=== PATIENT | male | born 1980 | race Caucasian/White ===

== ENCOUNTER 2021-01-23 09:52 | Emergency (ER) | payer OTHER, SELFPAY ==
[2021-01-23 10:32] VITALS: BP 141/99; PULSE 97; RESP 18; O2SAT 97; BMI 28.4
--- NOTE | 2021-01-23 10:40 | XRR_ITS ---
PROCEDURE INFORMATION: Exam: XR Chest Exam date and time: 01/23/2021 10:40 AM Age: 40 years old Clinical indication: Shortness of breath; Additional info: SOB TECHNIQUE: Imaging protocol: XR of the chest. Views: 1 view. COMPARISON: No relevant prior studies available. FINDINGS: Lungs: Cavitary lesion within the right upper lobe of approximately 3 cm. Lungs are well aerated without a focal area of consolidation. Pleural spaces: Unremarkable. No pleural effusion. No pneumothorax. Heart/Mediastinum: Unremarkable. No cardiomegaly. Bones/joints: Unremarkable. XR/XR chest 1V portable [id number] IMPRESSION: 1. Cavitary lesion within the right upper lobe of approximately 3 cm. 2. Lungs are well aerated without a focal area of consolidation.
--- NOTE | 2021-01-23 10:42 | W.ED.GENADLT ---
HPI - General Adult General: Chief complaint: COVID symptoms Stated complaint: COVID SX:3 WKS ELEV TEMP,COUGH,LAST VACC 3 WKS Time Seen by Provider: 01/23/21 10:37 Source: patient Mode of arrival: ambulatory Limitations: no limitations History of Present Illness: HPI narrative: 40-year-old male states that ever since he had his second Covid vaccine 2 weeks ago she had chills body aches and cough. States he just had malaise and fatigue as well. Denies any shortness of breath denies any nausea or vomiting or diarrhea. Denies any worsening or improving factors. Patient is in no respiratory distress here. Associated symptoms: Deny chest pain, headache(s), nausea, rash or vomiting Review of Systems Const: Reports: fever(s) and chills Eyes: Denies: blurry vision or eye discomfort ENMT: Denies: throat pain or dental pain Card: Denies: chest pain Resp: Reports: non-productive cough GI: Denies: abdominal pain, nausea, vomiting or diarrhea : Denies: dysuria Musc: Denies: neck pain or back pain Skin/Breast: Denies: rash Neuro: Denies: headache(s) Psych: Denies: depression Abel/Lymph: Denies: easy bruising All/Imm: Denies: urticaria Physical Exam Const: COMMON NORMALS: no acute distress, patient oriented x3 and healthy appearing HENMT: COMMON NORMALS: normocephalic and atraumatic HEAD & SCALP: normocephalic and atraumatic Eye: COMMON NORMALS: Equal, round and reactive pupils present and EOMs intact bilaterally PUPIL: Yes Equal, round and reactive pupils present Neck/C-Spine: COMMON NORMALS: full ROM and supple Chest: COMMONS NORMALS: normal inspection of the chest and normal palpation of entire chest wall Resp: COMMON NORMALS: normal respiratory effort, No retractions, No use of accessory muscles and clear to auscultation bilaterally AUSCULTATION: clear to auscultation bilaterally Cardio: COMMON NORMALS: regular rate, regular rhythm and No murmurs present (Cardio) RATE: regular rate RHYTHM: regular rhythm GI: COMMON NORMALS: Normal to inspection, nondistended, normoactive bowel sounds present, Soft to palpation, non-tender and no masses PALPATION: Yes Soft to palpation Extremity: COMMON NORMALS: normal to inspection and full ROM Neuro: COMMON NORMALS: patient oriented x3, moves all extremities and no focal motor deficits Psych: COMMON NORMALS: mental status grossly normal, Normal thought process present and cooperative THOUGHT PROCESS: Normal thought process present Skin: COMMON NORMALS: no rashes or lesions noted and no wounds GENERAL SKIN EXAM: no rashes or lesions noted Course Vital Signs: Vital signs: Vital Signs Pulse Rate 87 01/23/21 12:22 Respiratory Rate 16 01/23/21 12:22 Blood Pressure 123/78 01/23/21 12:22 Pulse Oximetry 97 01/23/21 12:22 MDM - General Adult MDM Narrative: Medical decision making narrative: Patient presents here with a viral-like illness over the last week to 2 weeks. He is afebrile here and nontoxic-appearing. His white count here is normal as well. CT scan showed a possible lung abscess versus other lesion with likely cavitary mass. Is 3.7 cm. I did speak to raw stock machine loader Dr. Lowery will start patient on oral antibiotics and antifungals get sputum cultures. He is to follow-up with Dr. Calloway next week. I spoke to patient as well and patient like to go home as he states that he feels well. I informed if he has a fever any shortness of breath he is return immediately. He understands and agrees to the plan. Lab Data: Labs: Lab Results 01/23/21 01/23/21 01/23/21 10:55 10:55 10:55 WBC 9.2 10^3/uL 10^3/ uL (4.0-10.0) RBC 5.08 10^6/uL 10^6 /uL (4.1-5.3) Hgb 16.1 g/dL g/dL (11.7-16.6) Hct 46.6 % % (42.0-52.0) MCV 91.7 fl fl (80-94) MCH 31.7 pg pg (28.0-34.0) MCHC 34.5 g/dL g/dL (30.0-36.0) RDW 13.0 % % (12.1-15.1) Plt Count 316 10^3/cmm 10^3 /cmm (130-400) MPV 9.6 fL fL (7.4-10.4) Neut % (Auto) 80.7 % % Lymph % (Auto) 9.8 % % [place] % (Auto) 7.2 % % Eos % (Auto) 1.6 % % Baso % (Auto) 0.4 % % Neut # (Auto) 7.41 10^3/uL 10^3 /uL (1.8-7.7) Lymph # (Auto) 0.9 10^3/uL 10^3/ uL (0.8-4.8) [place] # (Auto) 0.7 10^3/uL 10^3/ uL (0.2-0.9) Eos # (Auto) 0.2 10^3/uL 10^3/ uL (0.0-0.8) Baso # (Auto) 0.0 10^3/uL 10^3/ uL (0.0-0.1) Nucleated RBC % (a uto) 0 % % Nucleated RBCs # 0.0 /100WBC /100W BC Sodium Cancelled Potassium Cancelled Chloride Cancelled Carbon Dioxide Cancelled Anion Gap Cancelled BUN Cancelled Creatinine Cancelled GFR Calculation Cancelled Glucose Cancelled Calculated Osmolal ity Cancelled Calcium Cancelled Total Bilirubin Cancelled AST Cancelled ALT Cancelled Alkaline Phosphata se Cancelled Total Protein Cancelled Albumin Cancelled Globulin Cancelled SARS-CoV-2 Ag (Rap id) Negative (Negative) 01/23/21 11:23 WBC RBC Hgb Hct MCV MCH MCHC RDW Plt Count MPV Neut % (Auto) Lymph % (Auto) [place] % (Auto) Eos % (Auto) Baso % (Auto) Neut # (Auto) Lymph # (Auto) [place] # (Auto) Eos # (Auto) Baso # (Auto) Nucleated RBC % (a uto) Nucleated RBCs # Sodium 135 mmol/L L mmol /L (136-145) Potassium 5.1 mmol/L mmol/L (3.5-5.1) Chloride 101 mmol/L mmol/L (98-107) Carbon Dioxide 26 mmol/L mmol/L (22-29) Anion Gap 13.1 (5-19) BUN 11 mg/dL mg/dL (6-20) Creatinine 0.8 mg/dL mg/dL (0.7-1.2) GFR Calculation 107.6 mL/min mL/m in (90-130) Glucose 95 mg/dL mg/dL (65-115) Calculated Osmolal ity 279 mOsm/kg L mOs m/kg (285-295) Calcium 8.9 mg/dL mg/dL (8.5-10.5) Total Bilirubin 0.4 mg/dL mg/dL (0.15-1.2) AST 21 U/L U/L (0-40) ALT 30 U/L U/L (0-41) Alkaline Phosphata se 71 IU/L IU/L (40-130) Total Protein 7.1 g/dL g/dL (6.6-8.7) Albumin 3.6 g/dL g/dL (3.5-5.2) Globulin 3.5 g/dL g/dL (1.3-4.6) SARS-CoV-2 Ag (Rap id) Imaging Data^: CXR: Radiologist's impression: [place] [address] XRay Report Signed Patient: Adeel Hernandez Unit #: [id number] : 1980 Age/Sex: 40 / M ADM Date: 01/23/21 Loc: ER Room/Bed: Attending Dr: Ordering Provider/Ordering MD: Jessie Betancur MD Date of Service: 01/23/21 Procedure(s): XR chest 1V portable [id number] Accession Number(s): [id number] Report Number: [id number] PROCEDURE INFORMATION: Exam: XR Chest Exam date and time: 01/23/2021 10:40 AM Age: 40 years old Clinical indication: Shortness of breath; Additional info: SOB TECHNIQUE: Imaging protocol: XR of the chest. Views: 1 view. COMPARISON: No relevant prior studies available. FINDINGS: Lungs: Cavitary lesion within the right upper lobe of approximately 3 cm. Lungs are well aerated without a focal area of consolidation. Pleural spaces: Unremarkable. No pleural effusion. No pneumothorax. Heart/Mediastinum: Unremarkable. No cardiomegaly. Bones/joints: Unremarkable. XR/XR chest 1V portable [id number] IMPRESSION: 1. Cavitary lesion within the right upper lobe of approximately 3 cm. 2. Lungs are well aerated without a focal area of consolidation. Dictated By: Jayme Fong MD Signed By: Jayme Fong MD Signed Date/Time: 01/23/21 1140 DD/ 1139 CT Chest: Radiologist's impression: [address] [place] [address] CT Scan Report Signed Patient: Adeel Hernandez Unit #: [id number] : 1980 Age/Sex: 40 / M ADM Date: 01/23/21 Loc: ER Room/Bed: Attending Dr: Ordering Provider/Ordering MD: Jessie Betancur MD Date of Service: 01/23/21 Procedure(s): CT chest w con* [id number] Accession Number(s): [id number] Report Number: [id number] PROCEDURE INFORMATION: Exam: CT Chest With Contrast; Diagnostic Exam date and time: 01/23/2021 11:40 AM Age: 40 years old Clinical indication: Fever and shortness of breath; Additional info: Lung mass TECHNIQUE: Imaging protocol: Diagnostic computed tomography of the chest with contrast. Radiation optimization: All CT scans at this facility use at least one of these dose optimization techniques: automated exposure control; mA and/or kV adjustment per patient size (includes targeted exams where dose is matched to clinical indication); or iterative reconstruction. Contrast material: OMNI 300; Contrast volume: 95 ml; Contrast route: INTRAVENOUS (IV); COMPARISON: CR (CHEST, ) 01/23/2021 10:55 AM RADIATION DOSE METRICS: Total DLP (mGy-cm): 566.51 FINDINGS: Lungs: There is a 3.7 cm cavitary mass in the right upper lobe which was recently identified on a chest radiograph. It has poorly defined spiculated margins. There is an air-fluid level within the cavity. No other pulmonary mass or infiltrates are seen. Pleural spaces: Unremarkable. No pneumothorax. No pleural effusion. Heart: Unremarkable. No cardiomegaly. No pericardial effusion. Aorta: Unremarkable. No aortic aneurysm. Lymph nodes: There are mildly enlarged mediastinal lymph nodes which could be reactive in nature. Liver: There is a 6 mm hypodensity in the right lobe of the liver that is probably benign liver cyst. Bones/joints: Unremarkable. No acute fracture. Soft tissues: Unremarkable. CT/CT chest w con* [id number] IMPRESSION: 1. There is a 3.7 cm thick-walled cavitary mass with an air-fluid level in the right upper lobe. This could represent a infectious process with lung abscess. The possibility of necrotic neoplasia is not excluded. 2. There is mild mediastinal adenopathy. Radiation Dose CTDIVOL = (mGy): DLP = 566.51 (mGy-cm) Dictated By: He Barahona Signed By: He Barahona Signed Date/Time: 01/23/21 1301 DD/ 1300 Discharge Plan Discharge Patient Disposition: Home Clinical Impression: Cavitating mass in right upper lung lobe Condition: Stable Prescriptions: New fluconazole 200 mg tablet 200 mg PO DAILY Qty: 10 RF: 0 Discharge Orders: Discharge ED (Routine); Ordered 01/23/21 Ordered By: Jessie Betancur Referrals: DatarJose MD [Physician] - 1-3 days Mamadou Gutierres [Primary Care Provider] - Discharge Diet: Advance as tolerated Discharge Activity: Resume usual activity Patient Instructions: Lung Abscess (GEN) Coding Level of Care Code ED Manager Staffing for Chg Fwd Exam Comprehensive
[2021-01-23 11:03] VITALS: O2SAT 97
[2021-01-23 11:05] VITALS: BP 132/91; PULSE 88; RESP 16; O2SAT 96
[2021-01-23 11:10] LABS: Basophils % 0.4 %; Eosinophils # 0.2 10^3/uL (0.0-0.8); Eosinophils % 1.6 %; Hematocrit 46.6 % (42.0-52.0); Hemoglobin 16.1 g/dL (11.7-16.6); Lymphocytes # 0.9 10^3/uL (0.8-4.8); Lymphocytes % 9.8 %; Mean Corpuscular HGB Conc 34.5 g/dL (30.0-36.0); Mean Corpuscular Hemoglobin 31.7 pg (28.0-34.0); Mean Corpuscular Volume 91.7 fl (80-94); Mean Platelet Volume 9.6 fL (7.4-10.4); Monocytes # 0.7 10^3/uL (0.2-0.9); Monocytes % 7.2 %; Neutrophils # 7.41 10^3/uL (1.8-7.7); Neutrophils % 80.7 %; Nucleated Red Blood Cells % 0 %; Platelet Count 316 10^3/cmm (130-400); Red Blood Count 5.08 10^6/uL (4.1-5.3); White Blood Count 9.2 10^3/uL (4.0-10.0)
[2021-01-23] MEDS: sodium chloride 0.9% 1,000 ML 999 ML IV (11:12)
[2021-01-23] MEDS: dexamethasone 10 mg/mL INJ IVP (11:12)
--- NOTE | 2021-01-23 11:40 | CTR_ITS ---
PROCEDURE INFORMATION: Exam: CT Chest With Contrast; Diagnostic Exam date and time: 01/23/2021 11:40 AM Age: 40 years old Clinical indication: Fever and shortness of breath; Additional info: Lung mass TECHNIQUE: Imaging protocol: Diagnostic computed tomography of the chest with contrast. Radiation optimization: All CT scans at this facility use at least one of these dose optimization techniques: automated exposure control; mA and/or kV adjustment per patient size (includes targeted exams where dose is matched to clinical indication); or iterative reconstruction. Contrast material: OMNI 300; Contrast volume: 95 ml; Contrast route: INTRAVENOUS (IV); COMPARISON: CR (CHEST, ) 01/23/2021 10:55 AM RADIATION DOSE METRICS: Total DLP (mGy-cm): 566.51 FINDINGS: Lungs: There is a 3.7 cm cavitary mass in the right upper lobe which was recently identified on a chest radiograph. It has poorly defined spiculated margins. There is an air-fluid level within the cavity. No other pulmonary mass or infiltrates are seen. Pleural spaces: Unremarkable. No pneumothorax. No pleural effusion. Heart: Unremarkable. No cardiomegaly. No pericardial effusion. Aorta: Unremarkable. No aortic aneurysm. Lymph nodes: There are mildly enlarged mediastinal lymph nodes which could be reactive in nature. Liver: There is a 6 mm hypodensity in the right lobe of the liver that is probably benign liver cyst. Bones/joints: Unremarkable. No acute fracture. Soft tissues: Unremarkable. CT/CT chest w con* [id number] IMPRESSION: 1. There is a 3.7 cm thick-walled cavitary mass with an air-fluid level in the right upper lobe. This could represent a infectious process with lung abscess. The possibility of necrotic neoplasia is not excluded. 2. There is mild mediastinal adenopathy. Radiation Dose CTDIVOL = (mGy): DLP = 566.51 (mGy-cm)
[2021-01-23 11:46] LABS: Alanine Aminotransferase 30 U/L (0-41); Albumin Level 3.6 g/dL (3.5-5.2); Alkaline Phosphatase 71 IU/L (40-130); Anion Gap 13.1 (5-19); Aspartate Amino Transferase 21 U/L (0-40); Blood Urea Nitrogen 11 mg/dL (6-20); Calcium 8.9 mg/dL (8.5-10.5); Carbon Dioxide 26 mmol/L (22-29); Chloride 101 mmol/L (98-107); Globulin 3.5 g/dL (1.3-4.6); Glomerular Filtration Rate 107.6 mL/min (90-130); Glucose 95 mg/dL (65-115); Osmolality Calculated 279 mOsm/kg (285-295); Potassium 5.1 mmol/L (3.5-5.1); Sodium 135 mmol/L (136-145); Total Bilirubin 0.4 mg/dL (0.15-1.2); Total Protein 7.1 g/dL (6.6-8.7)
[2021-01-23 11:49] LABS: SARS Covid-2 Antigen Negative (Negative)
[2021-01-23] MEDS: iohexol 300 mg/mL 100 mL Btl IV (11:58)
[2021-01-23 12:22] VITALS: BP 123/78; PULSE 87; RESP 16; O2SAT 97
[2021-01-23 14:22] VITALS: BP 145/81; PULSE 89; RESP 16; O2SAT 94
--- NOTE | 2021-01-25 09:26 | DCPLANNER ---
Addendum entered by Cyndi Rodriguez 05/20/21 11:25: Patient had a follow up appointment scheduled for 02.02.21 with [facility] - patient did not attend appointment. Original Note: manager of program had message to schedule a follow up appointment for patient with pulmonology. manager of program called [facility], spoke with Monalisa, gave clinic patients information. A follow up appointment was scheduled for Tuesday, February 02, 2021 at 8:[address] Michaels. manager of program called patient and gave patient the appointment information. manager of program also gave patient the phone number to clinic so if he needed to cancel or reschedule the appointment.
== END 2021-01-23 14:23 | disposition home or self-care (01) ==
PROVIDERS: Emergency Provider Emergency Medicine; PCP Family Medicine
DX: J98.4 Other disorders of lung (principal); Z20.822 Contact with and (suspected) exposure to COVID-19
CPT/HCPCS: 71045; 71260; 80053; 85025; 87070; 87205; 87426; 96361; 96374; 99283; J1100; J7030; Q9967